=== PATIENT | female | born 1950 | race Caucasian/White ===

== ENCOUNTER → 2016-12-09 | Outpatient (CLI) | payer MEDICARE, OTHER ==
--- NOTE | 2016-12-09 13:47 | REP ---
RIGHT HAND SERIES: Four views. HISTORY: Pain. FINDINGS: Four views of the right hand demonstrate overall normal mineralization. 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 Subcortical cyst formation is seen in the base of the proximal phalanx of the long finger at the PIP joint. Bones, joints and soft tissues are otherwise unremarkable. Imp Arthritic changes as above. No acute bony abnormality. Signed by Sha Leong MD 12/09/2016 04:42 P
== END ==
LOC: M WUC 13:05
PROVIDERS: ATTEND Physician Assistant
DX: M79.641 Pain in right hand (principal)

== ENCOUNTER 2017-05-18 08:06 | Day surgery (SDC) | payer MEDICARE, OTHER ==
[~2017-05-18 08:06] MED LIST: MIDAZOLAM INJ 2 MG/2 ML VIAL (J2250) As Ordered; OFLOXACIN 0.3 % (OCUFLOX) OPTH SOL 5ML OS; PHENYLEPHRINE 2.5% OPHTH SOL 2ML OS; PROPARACAINE 0.5% OPHTH SOL 15ML OS; TROPICAMIDE 1% OPHTH SOLN 2ML OS; fentaNYL 100 MCG/2 ML INJECTION (J3010) As Ordered
[2017-05-18 09:33] LABS: BEDSIDE GLUCOSE 174 MG/DL (80-115)
[2017-05-18] MEDS: PHENYLEPHRINE 2.5% OPHTH SOL 2ML OS (09:38)
[2017-05-18] MEDS: OFLOXACIN 0.3 % (OCUFLOX) OPTH SOL 5ML OS (09:38)
[2017-05-18] MEDS: TROPICAMIDE 1% OPHTH SOLN 2ML OS (09:38)
[2017-05-18] MEDS: PROPARACAINE 0.5% OPHTH SOL 15ML OS (09:38)
[2017-05-18] MEDS: POVIDONE-IODINE 5% OPHTH PREP SOL 30ML As Ordered (11:53)
[2017-05-18] MEDS: BALANCED SALT IRRIGATION SOLUTION 500ML BAG (FOR OR EYE MACHINE) As Ordered (11:54)
[2017-05-18] MEDS: LIDOCAINE 0.75%/EPINEPHRINE 0.025% IN BSS 1ML SYR INTRACAMERAL (OR ONLY) As Ordered (11:54)
[2017-05-18] MEDS: DUOVISC (0.50ML VISCOAT/0.55ML PROVISC) OPHTH KIT As Ordered (11:54)
[2017-05-18] MEDS: ACETYLCHOLINE OPHTH SOLN 1% 2ML (MIOCHOL-E) As Ordered (11:54)
[2017-05-18] MEDS: CEFUROXIME 1MG/0.1ML INTRACAMERAL INJ As Ordered (11:54)
== END 2017-05-18 12:45 | disposition home or self-care (01) ==
LOC: M SDC 08:06
DX: H25.12 Age-related nuclear cataract, left eye (principal); I10 Essential (primary) hypertension; E11.9 Type 2 diabetes mellitus without complications; M19.90 Unspecified osteoarthritis, unspecified site; M54.9 Dorsalgia, unspecified; J45.909 Unspecified asthma, uncomplicated; Z79.899 Other long term (current) drug therapy; Z79.82 Long term (current) use of aspirin; Z79.84 Long term (current) use of oral hypoglycemic drugs
CPT/HCPCS: 66984

== ENCOUNTER 2017-08-11 12:52 | Outpatient (RCR) | payer MEDICARE, OTHER | END 2017-08-21 | LOC: M PT 08-16 14:56 | DX: Z47.1 Aftercare following joint replacement surgery (principal); Z96.652 Presence of left artificial knee joint | CPT/HCPCS: 97110 ==

== ENCOUNTER 2021-09-13 14:46 | Inpatient (IN) | payer MEDICARE, OTHER ==
[~2021-09-13] VITALS: Ht 154.9 cm; Wt 117.0 kg
[~2021-09-13 14:46] MED LIST changes: +ALBU2TA PO; +ASPI81TA26 PO; +ATOR1TAB19; +ESOM1CAP5; +FURO40TA2; +GLIM1TAB4; -MIDAZOLAM INJ 2 MG/2 ML VIAL (J2250) As Ordered; -OFLOXACIN 0.3 % (OCUFLOX) OPTH SOL 5ML OS; -PHENYLEPHRINE 2.5% OPHTH SOL 2ML OS; -PROPARACAINE 0.5% OPHTH SOL 15ML OS; +QUIN1TAB3; -TROPICAMIDE 1% OPHTH SOLN 2ML OS; +[UNRECOGNIZED DRUG - CODE]; -fentaNYL 100 MCG/2 ML INJECTION (J3010) As Ordered
[2021-09-13] MEDS ORDERED: LIDOCAINE 2% W/EPINEPHRINE 20ML VIAL **PRES FREE As Ordered ONE (15:00)
[2021-09-13] MEDS ORDERED: LIDOCAINE 2% W/EPINEPHRINE 20ML VIAL **PRES FREE INJ ONE (15:00)
[2021-09-13] MEDS ORDERED: IBUPROFEN 800 MG TAB PO ONE (15:20)
[2021-09-13] MEDS ORDERED: NS 1,000 ML IV ONE (15:20)
[2021-09-13 15:31] LABS: BASO % 0.2 % (0.0-1.0); EOS % 0.1 % (0.0-3.0); HEMATOCRIT 42.4 % (36.0-47.0); HEMOGLOBIN 13.5 g/dl (12.0-15.5); LYMPH # 0.7 10^3/uL (1.5-5.0); MEAN CORPUSCULAR HEMOGLOBIN 27.7 pg (27.0-33.0); MEAN CORPUSCULAR HGB CONC 31.8 g/dl (32.0-36.5); MEAN CORPUSCULAR VOLUME 86.9 fl (80.0-96.0); MONO # 0.3 10^3/uL (0.0-0.8); MONO % 3.4 % (2.0-8.0); NEUTROPHILS # 8.1 10^3/uL (1.5-8.5); NEUTROPHILS % 87.2 % (36.0-66.0); PLATELET COUNT, AUTOMATED 149 10^3/uL (150-450); RED BLOOD COUNT 4.88 10^6/uL (4.00-5.40); WHITE BLOOD COUNT 9.3 10^3/uL (4.0-10.0)
[2021-09-13] MEDS ORDERED: AMPICILLIN SOD/SULBACTAM SOD 3 GM in D5W MINI-BAG PLUS 100 ML IV ONE (15:45)
[2021-09-13] MEDS ORDERED: VANCOMYCIN HCL 2,000 MG in D5W 500 ML IV ONE (15:45)
[2021-09-13 15:52] LABS: INR 1.1; PROTHROMBIN TIME 14.6 SECONDS (12.7-14.5)
[2021-09-13 15:53] LABS: PARTIAL THROMBOPLASTIN TIME 34.3 SECONDS (25.9-37.0)
[2021-09-13] MEDS ORDERED: VANCOMYCIN HCL 1,000 MG, VIAL MATE ADAPTER 1 EACH in NS 250 ML IV ONE ×2 (16:00→17:00)
[2021-09-13 16:24] LABS: ALBUMIN 3.3 GM/DL (3.2-5.2); BILIRUBIN,DIRECT 0.5 MG/DL (0.0-0.2); BILIRUBIN,TOTAL 1.3 MG/DL (0.2-1.0); C REACTIVE PROTEIN QUANTITATIV 45.3 MG/DL (0.00-0.30); CALCIUM LEVEL 8.9 MG/DL (8.8-10.2); CREATININE FOR GFR 0.98 MG/DL (0.55-1.30); GLOMERULAR FILTRATION RATE 59.9 (>45); POTASSIUM SERUM 3.9 MEQ/L (3.5-5.1)
[2021-09-13 16:26] LABS: INFLUENZA A AMPLIFICATION NEGATIVE (NEGATIVE); INFLUENZA B AMPLIFICATION NEGATIVE (NEGATIVE)
[2021-09-13] MEDS ORDERED: ESOM40CA35 PO (16:38)
[2021-09-13] MEDS ORDERED: SPIR-10 PO (16:38)
[2021-09-13] MEDS: ALBUTEROL 90 MCG/ACT 8GM HFA INHALER INH SCH ×2 (17:01→17:15)
[2021-09-13] MEDS ORDERED: LIDOCAINE 2% 5ML JELLY UROJET TOP ONE (17:05)
[2021-09-13 17:20] LABS: CRYSTALS, BODY FLUID NONE SEEN (NONE SEEN); SOURCE, BODY FLUID CRYSTALS LFT KNEE
[2021-09-13 17:35] LABS: SOURCE, BODY FLUID LFT KNEE; SYNOVIAL FLUID COLOR RED (COLORLESS)
[2021-09-13 17:46] LABS: SOURCE, BODY FLUID GLUCOSE LFT KNEE; SOURCE, BODY FLUID URIC ACID LFT KNEE; URIC ACID, BODY FLUID 4.9 MG/DL (NOT ESTABLISHED)
[2021-09-13] MEDS ORDERED: ALBUTEROL SULFATE 2.5 MG/0.5 ML INH NEB SOLN NEB PRN (18:55)
[2021-09-13] MEDS ORDERED: GLUCAGON INJ 1MG VIAL SC PRN (19:05)
[2021-09-13] MEDS ORDERED: DEXTROSE 50% 50 ML SYRINGE IV PRN (19:05)
[2021-09-13] MEDS ORDERED: GLUCOSE 4GM CHEW TABLET PO PRN (19:05)
[2021-09-13] MEDS ORDERED: VANCOMYCIN HCL 1,000 MG, VIAL MATE ADAPTER 1 EACH in NS 250 ML IV SCH (20:25)
[2021-09-13 20:45] VITALS: BP 126/57
[2021-09-13] MEDS: INSULIN LISPRO (NovoLOG) PER UNIT SC SCH (21:41)
[2021-09-13] MEDS ORDERED: REMDESIVIR 200 MG in NS 250 ML IV ONE (22:00)
[2021-09-13] MEDS ORDERED: ATOR1TAB19 PO (22:07)
[2021-09-13] MEDS ORDERED: ALBU8.5H INH (22:07)
[2021-09-13] MEDS ORDERED: FURO40TA2 PO (22:07)
[2021-09-13] MEDS ORDERED: QUIN20TA48 PO (22:07)
[2021-09-13] MEDS ORDERED: VITA400C53 PO (22:10)
[2021-09-13] MEDS ORDERED: C 50TAB PO (22:10)
[2021-09-13] MEDS ORDERED: ACET-907 PO (22:10)
[2021-09-13] MEDS ORDERED: REFR0.5D8 OU (22:10)
[2021-09-13] MEDS ORDERED: EQL50TAB2 PO (22:10)
[2021-09-13] MEDS ORDERED: VITA100093 PO (22:10)
[2021-09-13] MEDS ORDERED: BACITAB PO (22:10)
[2021-09-13] MEDS ORDERED: HOME MED LIST COMPLETE! XX SCH (22:15)
[2021-09-13] MEDS ORDERED: SODIUM CHLORIDE 0.9% INJ 10 ML SYR IV ONE (23:00)
[2021-09-13] MEDS: PIPERACILLIN/TAZOBACTAM SOD 3.375 GM in D5W MINI-BAG PLUS 50 ML IV SCH (23:58)
[2021-09-14] VITALS (12 sets, daily range): BP systolic 111–175; BP diastolic 55–77; O2SAT 83–93
[2021-09-14] MEDS: PIPERACILLIN/TAZOBACTAM SOD 3.375 GM in D5W MINI-BAG PLUS 50 ML IV SCH ×4 (04:05→22:54)
[2021-09-14] MEDS: VANCOMYCIN HCL 750 MG, VIAL MATE ADAPTER 1 EACH in NS 250 ML IV SCH ×2 (05:09→17:45)
[2021-09-14] MEDS: ACETAMINOPHEN TAB 650MG DOSE (2X325MG) PO PRN ×3 (05:36→22:56)
[2021-09-14] MEDS: VANCOMYCIN HCL 500 MG in D5W MINI-BAG PLUS 100 ML IV SCH ×2 (06:20→19:56)
[2021-09-14 06:48] LABS: HEMATOCRIT 37.7 % (36.0-47.0); HEMOGLOBIN 11.9 g/dl (12.0-15.5); MEAN CORPUSCULAR HEMOGLOBIN 27.4 pg (27.0-33.0); MEAN CORPUSCULAR HGB CONC 31.6 g/dl (32.0-36.5); MEAN CORPUSCULAR VOLUME 86.9 fl (80.0-96.0); PLATELET COUNT, AUTOMATED 140 10^3/uL (150-450); RED BLOOD COUNT 4.34 10^6/uL (4.00-5.40); WHITE BLOOD COUNT 8.7 10^3/uL (4.0-10.0)
[2021-09-14 07:13] LABS: ALBUMIN 2.6 GM/DL (3.2-5.2); ALT/SGPT 23 U/L (12-78); BILIRUBIN,DIRECT 0.3 MG/DL (0.0-0.2); BILIRUBIN,TOTAL 0.9 MG/DL (0.2-1.0); BLOOD UREA NITROGEN 24 MG/DL (7-18); CALCIUM LEVEL 8.7 MG/DL (8.8-10.2); CARBON DIOXIDE LEVEL 27 MEQ/L (21-32); CHLORIDE LEVEL 103 MEQ/L (98-107); CREATININE FOR GFR 0.96 MG/DL (0.55-1.30); GLOMERULAR FILTRATION RATE > 60.0 (>45); GLUCOSE, FASTING 255 MG/DL (70-100); MAGNESIUM LEVEL 2.5 MG/DL (1.8-2.4); POTASSIUM SERUM 3.3 MEQ/L (3.5-5.1); SODIUM LEVEL 137 MEQ/L (136-145); TOTAL PROTEIN 7.1 GM/DL (6.4-8.2)
[2021-09-14 07:38] LABS: HEMOGLOBIN A1c 10.2 %
[2021-09-14 08:20] LABS: LYMPHOCYTES 14 % (16-44); MONOCYTES 9 % (0-5); NEUTROPHILS 77 % (28-66); PLATELET ESTIMATE NORMAL (NORMAL)
[2021-09-14] MEDS ORDERED: ASPIRIN 81MG ENTERIC TABLET PO SCH (09:00)
[2021-09-14] MEDS ORDERED: ENOXAPARIN 40MG/0.4ML SYRINGE (J1650 PER 10MG) SC SCH ×2 (09:00→21:00)
[2021-09-14] MEDS: INSULIN LISPRO (NovoLOG) PER UNIT SC SCH ×4 (09:33→21:13)
[2021-09-14] MEDS: LEVEMIR (INSULIN DETEMIR) 1 UNITS/0.01ML SC SCH (09:34)
[2021-09-14] MEDS: SPIRONOLACTONE 25 MG TAB PO SCH (09:34)
[2021-09-14] MEDS: ASPIRIN 81MG ENTERIC TABLET PO SCH (09:35)
[2021-09-14] MEDS: ATORVASTATIN 10 MG TAB PO SCH (09:35)
[2021-09-14] MEDS: FUROSEMIDE 40 MG TAB PO SCH (09:35)
[2021-09-14] MEDS ORDERED: NS 1,000 ML IV SCH (12:50)
[2021-09-14 13:38] LABS: BASO % 0.4 % (0.0-1.0); EOS % 0.4 % (0.0-3.0); HEMATOCRIT 39.3 % (36.0-47.0); HEMOGLOBIN 12.4 g/dl (12.0-15.5); LYMPH # 0.5 10^3/uL (1.5-5.0); LYMPH % 6.7 % (24.0-44.0); MEAN CORPUSCULAR HEMOGLOBIN 27.1 pg (27.0-33.0); MEAN CORPUSCULAR HGB CONC 31.6 g/dl (32.0-36.5); MONO # 0.5 10^3/uL (0.0-0.8); MONO % 6.6 % (2.0-8.0); NEUTROPHILS # 6.6 10^3/uL (1.5-8.5); NEUTROPHILS % 84.6 % (36.0-66.0); PLATELET COUNT, AUTOMATED 153 10^3/uL (150-450); RED BLOOD COUNT 4.57 10^6/uL (4.00-5.40); WHITE BLOOD COUNT 7.8 10^3/uL (4.0-10.0)
[2021-09-14] MEDS ORDERED: IBUPROFEN 800 MG TAB PO ONE (14:00)
[2021-09-14 14:07] LABS: ALBUMIN 2.8 GM/DL (3.2-5.2); ALT/SGPT 28 U/L (12-78); BILIRUBIN,TOTAL 0.8 MG/DL (0.2-1.0); BLOOD UREA NITROGEN 22 MG/DL (7-18); CALCIUM LEVEL 8.5 MG/DL (8.8-10.2); CARBON DIOXIDE LEVEL 26 MEQ/L (21-32); CHLORIDE LEVEL 102 MEQ/L (98-107); CREATININE FOR GFR 0.88 MG/DL (0.55-1.30); GLOMERULAR FILTRATION RATE > 60.0 (>45); GLUCOSE, FASTING 240 MG/DL (70-100); POTASSIUM SERUM 3.4 MEQ/L (3.5-5.1); SODIUM LEVEL 137 MEQ/L (136-145); TOTAL PROTEIN 6.4 GM/DL (6.4-8.2)
[2021-09-14] MEDS ORDERED: MORPHINE 2 MG/ML 1ML VIAL IV PRN (15:10)
[2021-09-14] MEDS: MORPHINE 2 MG/ML 1ML VIAL IV PRN (19:57)
[2021-09-14] MEDS: QUINAPRIL 20 MG TAB PO SCH (19:58)
[2021-09-14] MEDS: REMDESIVIR 100 MG in NS 250 ML IV SCH (21:13)
[2021-09-14] MEDS: SODIUM CHLORIDE 0.9% INJ 10 ML SYR IV SCH (22:54)
[2021-09-15] MEDS: MORPHINE 2 MG/ML 1ML VIAL IV PRN ×4 (01:54→20:56)
[2021-09-15] MEDS: PIPERACILLIN/TAZOBACTAM SOD 3.375 GM in D5W MINI-BAG PLUS 50 ML IV SCH (04:14)
[2021-09-15 04:20] VITALS: BP 118/57
[2021-09-15] MEDS ORDERED: VANCOMYCIN HCL 1,000 MG, VIAL MATE ADAPTER 1 EACH in NS 250 ML IV SCH (06:00)
[2021-09-15 07:27] LABS: BASO % 0.4 % (0.0-1.0); EOS # 0.1 10^3/uL (0.0-0.5); EOS % 1.4 % (0.0-3.0); HEMATOCRIT 36.4 % (36.0-47.0); HEMOGLOBIN 11.6 g/dl (12.0-15.5); LYMPH # 0.8 10^3/uL (1.5-5.0); LYMPH % 10.5 % (24.0-44.0); MEAN CORPUSCULAR HEMOGLOBIN 27.5 pg (27.0-33.0); MEAN CORPUSCULAR HGB CONC 31.9 g/dl (32.0-36.5); MEAN CORPUSCULAR VOLUME 86.3 fl (80.0-96.0); MONO # 0.8 10^3/uL (0.0-0.8); MONO % 10.9 % (2.0-8.0); NEUTROPHILS # 5.6 10^3/uL (1.5-8.5); NEUTROPHILS % 75.3 % (36.0-66.0); PLATELET COUNT, AUTOMATED 159 10^3/uL (150-450); RED BLOOD COUNT 4.22 10^6/uL (4.00-5.40); WHITE BLOOD COUNT 7.4 10^3/uL (4.0-10.0)
[2021-09-15 07:33] LABS: INR 1.2; PROTHROMBIN TIME 15.6 SECONDS (12.7-14.5)
[2021-09-15 07:34] LABS: PARTIAL THROMBOPLASTIN TIME 44.3 SECONDS (25.9-37.0)
[2021-09-15 07:47] LABS: ALBUMIN 2.3 GM/DL (3.2-5.2); ALT/SGPT 29 U/L (12-78); BILIRUBIN,DIRECT 0.3 MG/DL (0.0-0.2); BILIRUBIN,TOTAL 0.5 MG/DL (0.2-1.0); BLOOD UREA NITROGEN 23 MG/DL (7-18); CALCIUM LEVEL 7.9 MG/DL (8.8-10.2); CARBON DIOXIDE LEVEL 27 MEQ/L (21-32); CHLORIDE LEVEL 102 MEQ/L (98-107); FERRITIN 457 NG/ML (8-252); GLOMERULAR FILTRATION RATE > 60.0 (>45); GLUCOSE, FASTING 280 MG/DL (70-100); LDH LACTATE DEHYDROGENASE 177 U/L (84-246); MAGNESIUM LEVEL 2.4 MG/DL (1.8-2.4); NT-PRO BNP 258 PG/ML (<125); POTASSIUM SERUM 3.1 MEQ/L (3.5-5.1); SODIUM LEVEL 137 MEQ/L (136-145); TOTAL PROTEIN 5.8 GM/DL (6.4-8.2)
[2021-09-15 08:00] VITALS: BP 123/64
[2021-09-15] MEDS: ACETAMINOPHEN TAB 650MG DOSE (2X325MG) PO PRN (08:19)
[2021-09-15] MEDS ORDERED: LEVEMIR (INSULIN DETEMIR) 1 UNITS/0.01ML SC ONE (08:25)
[2021-09-15] MEDS: INSULIN LISPRO (NovoLOG) PER UNIT SC SCH ×4 (08:32→20:40)
[2021-09-15] MEDS: cefTRIAXone SOD 2 GM in D5W MINI-BAG PLUS 50 ML IV SCH (08:58)
[2021-09-15] MEDS: ATORVASTATIN 10 MG TAB PO SCH (09:00)
[2021-09-15] MEDS: LACTOBACILLUS ACIDOPHILUS CAP (BACID) PO SCH (09:00)
[2021-09-15] MEDS: ASCORBIC ACID 500 MG TAB PO SCH (09:00)
[2021-09-15] MEDS: ASPIRIN 81MG ENTERIC TABLET PO SCH (10:30)
[2021-09-15] MEDS: VITAMIN D 1,000 INTERNATIONAL UNITS TABLET PO SCH (10:30)
[2021-09-15] MEDS: PANTOPRAZOLE 40MG TAB (PROTONIX) PO SCH (10:30)
[2021-09-15 12:00] VITALS: BP 116/63
[2021-09-15] MEDS ORDERED: ceFAZolin 1GM VIAL (J0690 PER 500MG) As Ordered ONE (14:25)
[2021-09-15] MEDS ORDERED: MIDAZOLAM INJ 2MG/2ML VIAL (J2250 PER 1MG) As Ordered ONE (14:47)
[2021-09-15] MEDS ORDERED: METOCLOPRAMIDE INJ 10MG/2ML VIAL (J2765 PER 1) As Ordered ONE (14:47)
[2021-09-15] MEDS ORDERED: dexameTHASONE 4 MG/ML 1ML VIAL (J1100 PER 1MG) As Ordered ONE (14:47)
[2021-09-15] MEDS ORDERED: LIDOCAINE 2% 100MG/5ML SDV (FOR ANES.) As Ordered ONE (14:47)
[2021-09-15] MEDS ORDERED: fentaNYL 100 MCG/2 ML INJECTION As Ordered ONE ×2 (14:47→16:50)
[2021-09-15] MEDS ORDERED: propofoL 200 MG/20 ML VIAL As Ordered ONE ×3 (14:47→16:52)
[2021-09-15] MEDS ORDERED: ONDANSETRON 4MG/2ML VIAL As Ordered ONE (14:47)
[2021-09-15] MEDS ORDERED: INSULIN LISPRO (NovoLOG) PER UNIT As Ordered ONE (15:04)
[2021-09-15] MEDS ORDERED: LABETALOL 100MG/20ML VIAL As Ordered ONE (15:09)
[2021-09-15] MEDS ORDERED: TRANEXAMIC ACID 100 MG/ML 10ML VIAL As Ordered ONE (15:14)
[2021-09-15] MEDS ORDERED: ACETAMINOPHEN 1000MG 100ML IV BTL (OFIRMEV) (J0131 PER 10MG) As Ordered ONE (17:13)
[2021-09-15] MEDS ORDERED: BACITRACIN OINTMENT 30GM TUBE As Ordered ONE (17:34)
[2021-09-15] MEDS ORDERED: ONDANSETRON 4MG/2ML VIAL IV PRN (17:50)
[2021-09-15] MEDS ORDERED: INSULIN LISPRO (NovoLOG) PER UNIT SC PRN (17:50)
[2021-09-15] MEDS ORDERED: METOCLOPRAMIDE INJ 10MG/2ML VIAL (J2765 PER 1) IV PRN (17:50)
[2021-09-15] MEDS ORDERED: LR 1,000 ML IV SCH (17:50)
[2021-09-15] MEDS ORDERED: diphenhydrAMINE 50MG/ML VIAL (J1200) IV PRN (17:55)
[2021-09-15] MEDS ORDERED: zolPIDEM TARTRATE 5 MG TAB PO PRN (17:55)
[2021-09-15] MEDS ORDERED: SENNA 8.6 MG TAB (SENOKOT) PO PRN (17:55)
[2021-09-15] MEDS: HYDROMORPHONE HCL 0.5 MG/ 0.5 ML SYRINGE (J1170 PER 1) IV PRN ×2 (18:00→18:10)
[2021-09-15] MEDS: oxyCODONE 5MG TAB PO PRN ×2 (18:15→18:45)
[2021-09-15] MEDS: fentaNYL 100 MCG/2 ML INJECTION IV PRN ×4 (18:15→18:39)
[2021-09-15 18:45] VITALS: BP 143/77
[2021-09-15 20:00] VITALS: BP 151/71
[2021-09-15] MEDS: REMDESIVIR 100 MG in NS 250 ML IV SCH (20:39)
[2021-09-15] MEDS: IBUPROFEN 600MG TAB PO PRN (20:56)
[2021-09-15] MEDS: SODIUM CHLORIDE 0.9% INJ 10 ML SYR IV SCH (22:08)
[2021-09-16] MEDS: MORPHINE 2 MG/ML 1ML VIAL IV PRN ×5 (01:22→21:05)
[2021-09-16 04:00] VITALS: BP 126/67
[2021-09-16] MEDS: ACETAMINOPHEN TAB 650MG DOSE (2X325MG) PO PRN ×2 (04:36→23:49)
[2021-09-16 06:20] LABS: HEMOGLOBIN 11.5 g/dl (12.0-15.5); MEAN CORPUSCULAR HEMOGLOBIN 27.7 pg (27.0-33.0); MEAN CORPUSCULAR HGB CONC 31.9 g/dl (32.0-36.5); MEAN CORPUSCULAR VOLUME 86.7 fl (80.0-96.0); PLATELET COUNT, AUTOMATED 178 10^3/uL (150-450); RED BLOOD COUNT 4.15 10^6/uL (4.00-5.40); WHITE BLOOD COUNT 10.6 10^3/uL (4.0-10.0)
[2021-09-16 07:01] LABS: LYMPHOCYTES 11 % (16-44); MONOCYTES 4 % (0-5); NEUTROPHILS 83 % (28-66)
[2021-09-16 07:03] LABS: BLOOD UREA NITROGEN 24 MG/DL (7-18); CALCIUM LEVEL 8.9 MG/DL (8.8-10.2); CARBON DIOXIDE LEVEL 24 MEQ/L (21-32); CHLORIDE LEVEL 103 MEQ/L (98-107); CREATININE FOR GFR 0.74 MG/DL (0.55-1.30); GLOMERULAR FILTRATION RATE > 60.0 (>45); GLUCOSE, FASTING 307 MG/DL (70-100); MAGNESIUM LEVEL 2.7 MG/DL (1.8-2.4); POTASSIUM SERUM 3.5 MEQ/L (3.5-5.1); SODIUM LEVEL 139 MEQ/L (136-145)
[2021-09-16 07:04] LABS: PLATELET ESTIMATE NORMAL (NORMAL)
[2021-09-16] MEDS: INSULIN LISPRO (NovoLOG) PER UNIT SC SCH ×4 (07:31→20:57)
[2021-09-16] MEDS: ASPIRIN 81MG ENTERIC TABLET PO SCH (07:32)
[2021-09-16] MEDS: ATORVASTATIN 10 MG TAB PO SCH (07:32)
[2021-09-16] MEDS: LACTOBACILLUS ACIDOPHILUS CAP (BACID) PO SCH (07:32)
[2021-09-16] MEDS: PANTOPRAZOLE 40MG TAB (PROTONIX) PO SCH (07:33)
[2021-09-16] MEDS: ASCORBIC ACID 500 MG TAB PO SCH (07:33)
[2021-09-16] MEDS: VITAMIN D 1,000 INTERNATIONAL UNITS TABLET PO SCH (07:33)
[2021-09-16] MEDS: cefTRIAXone SOD 2 GM in D5W MINI-BAG PLUS 50 ML IV SCH (07:34)
[2021-09-16] MEDS: LEVEMIR (INSULIN DETEMIR) 1 UNITS/0.01ML SC SCH (09:32)
[2021-09-16] MEDS: SPIRONOLACTONE 25 MG TAB PO SCH (09:33)
[2021-09-16] MEDS: FUROSEMIDE 40 MG TAB PO SCH (09:33)
[2021-09-16 10:00] VITALS: O2SAT 91
[2021-09-16 14:00] VITALS: BP 146/67
[2021-09-16] MEDS: IBUPROFEN 600MG TAB PO PRN (14:29)
[2021-09-16] MEDS: ENOXAPARIN 40MG/0.4ML SYRINGE (J1650 PER 10MG) SC SCH (16:46)
[2021-09-16 20:00] VITALS: BP 137/71
[2021-09-16] MEDS: QUINAPRIL 20 MG TAB PO SCH (20:57)
[2021-09-17] MEDS: MORPHINE 2 MG/ML 1ML VIAL IV PRN ×5 (01:17→20:03)
[2021-09-17 04:00] VITALS: BP 142/66
[2021-09-17] MEDS: IBUPROFEN 600MG TAB PO PRN (04:08)
[2021-09-17 07:33] LABS: HEMATOCRIT 34.8 % (36.0-47.0); HEMOGLOBIN 10.9 g/dl (12.0-15.5); MEAN CORPUSCULAR HEMOGLOBIN 27.1 pg (27.0-33.0); MEAN CORPUSCULAR HGB CONC 31.3 g/dl (32.0-36.5); MEAN CORPUSCULAR VOLUME 86.6 fl (80.0-96.0); PLATELET COUNT, AUTOMATED 207 10^3/uL (150-450); RED BLOOD COUNT 4.02 10^6/uL (4.00-5.40); WHITE BLOOD COUNT 10.7 10^3/uL (4.0-10.0)
[2021-09-17 07:53] LABS: INR 1.08; PROTHROMBIN TIME 14.4 SECONDS (12.7-14.5)
[2021-09-17 07:54] LABS: PARTIAL THROMBOPLASTIN TIME 38.8 SECONDS (25.9-37.0)
[2021-09-17 08:12] LABS: ERYTHROCYTE SEDIMENTATION RATE 86 mm/hr (0-30)
[2021-09-17 08:13] LABS: ALBUMIN 2.2 GM/DL (3.2-5.2); ALT/SGPT 44 U/L (12-78); BILIRUBIN,DIRECT 0.2 MG/DL (0.0-0.2); BILIRUBIN,TOTAL 0.4 MG/DL (0.2-1.0); BLOOD UREA NITROGEN 24 MG/DL (7-18); CALCIUM LEVEL 8.1 MG/DL (8.8-10.2); CARBON DIOXIDE LEVEL 30 MEQ/L (21-32); CHLORIDE LEVEL 101 MEQ/L (98-107); CREATININE FOR GFR 0.79 MG/DL (0.55-1.30); FERRITIN 840 NG/ML (8-252); GLOMERULAR FILTRATION RATE > 60.0 (>45); GLUCOSE, FASTING 318 MG/DL (70-100); LDH LACTATE DEHYDROGENASE 232 U/L (84-246); MAGNESIUM LEVEL 2.3 MG/DL (1.8-2.4); NT-PRO BNP 284 PG/ML (<125); POTASSIUM SERUM 3.3 MEQ/L (3.5-5.1); SODIUM LEVEL 138 MEQ/L (136-145); TOTAL PROTEIN 5.7 GM/DL (6.4-8.2)
[2021-09-17] MEDS: INSULIN LISPRO (NovoLOG) PER UNIT SC SCH ×4 (09:00→20:59)
[2021-09-17] MEDS: cefTRIAXone SOD 2 GM in D5W MINI-BAG PLUS 50 ML IV SCH (09:01)
[2021-09-17] MEDS: LEVEMIR (INSULIN DETEMIR) 1 UNITS/0.01ML SC SCH (09:01)
[2021-09-17] MEDS: ASPIRIN 81MG ENTERIC TABLET PO SCH (09:02)
[2021-09-17] MEDS: FUROSEMIDE 40 MG TAB PO SCH (09:03)
[2021-09-17] MEDS: PANTOPRAZOLE 40MG TAB (PROTONIX) PO SCH (09:03)
[2021-09-17] MEDS: ASCORBIC ACID 500 MG TAB PO SCH (09:03)
[2021-09-17] MEDS: ATORVASTATIN 10 MG TAB PO SCH (09:03)
[2021-09-17] MEDS: LACTOBACILLUS ACIDOPHILUS CAP (BACID) PO SCH (09:04)
[2021-09-17] MEDS: SPIRONOLACTONE 25 MG TAB PO SCH (09:04)
[2021-09-17] MEDS: VITAMIN D 1,000 INTERNATIONAL UNITS TABLET PO SCH (09:04)
[2021-09-17] MEDS ORDERED: POTASSIUM CHLORIDE 10MEQ SR TABLET PO ONE (09:45)
[2021-09-17] MEDS: ACETAMINOPHEN TAB 650MG DOSE (2X325MG) PO PRN ×2 (10:36→17:13)
[2021-09-17 11:13] LABS: EOSINOPHILS 4 % (0-3); LYMPHOCYTES 31 % (16-44); METAMYELOCYTES 1 % (0-0); MONOCYTES 7 % (0-5); MYELOCYTES 2 % (0-0); NEUTROPHILS 55 % (28-66); PLATELET ESTIMATE NORMAL (NORMAL)
[2021-09-17 11:58] VITALS: O2SAT 93
[2021-09-17 14:00] VITALS: BP 140/70
[2021-09-17] MEDS ORDERED: LIDOCAINE 1% MDV 20ML VIAL As Ordered ONE (15:50)
[2021-09-17] MEDS: ENOXAPARIN 40MG/0.4ML SYRINGE (J1650 PER 10MG) SC SCH (17:11)
[2021-09-17] MEDS: QUINAPRIL 20 MG TAB PO SCH (20:10)
[2021-09-17] MEDS ORDERED: HYDROmorphone HCL 2MG/ML 1ML VIAL IV ONE (22:25)
[2021-09-17] MEDS ORDERED: MORPHINE 4 MG/ML 1ML VIAL/SYRINGE IV PRN (23:10)
[2021-09-17] MEDS ORDERED: MORPHINE 2 MG/ML 1ML VIAL IV PRN (23:10)
[2021-09-18 06:00] VITALS: BP 167/77
[2021-09-18 07:32] LABS: HEMATOCRIT 35.9 % (36.0-47.0); HEMOGLOBIN 11.2 g/dl (12.0-15.5); MEAN CORPUSCULAR HEMOGLOBIN 26.9 pg (27.0-33.0); MEAN CORPUSCULAR HGB CONC 31.2 g/dl (32.0-36.5); MEAN CORPUSCULAR VOLUME 86.3 fl (80.0-96.0); PLATELET COUNT, AUTOMATED 236 10^3/uL (150-450); RED BLOOD COUNT 4.16 10^6/uL (4.00-5.40); WHITE BLOOD COUNT 10.6 10^3/uL (4.0-10.0)
[2021-09-18] MEDS: INSULIN LISPRO (NovoLOG) PER UNIT SC SCH ×4 (07:43→20:45)
[2021-09-18] MEDS: PERCOCET 5MG/325MG TAB PO PRN ×4 (07:44→20:48)
[2021-09-18 07:51] LABS: BLOOD UREA NITROGEN 17 MG/DL (7-18); CALCIUM LEVEL 8.6 MG/DL (8.8-10.2); CARBON DIOXIDE LEVEL 30 MEQ/L (21-32); CHLORIDE LEVEL 101 MEQ/L (98-107); CREATININE FOR GFR 0.62 MG/DL (0.55-1.30); GLOMERULAR FILTRATION RATE > 60.0 (>45); GLUCOSE, FASTING 309 MG/DL (70-100); MAGNESIUM LEVEL 2.1 MG/DL (1.8-2.4); POTASSIUM SERUM 3.4 MEQ/L (3.5-5.1); SODIUM LEVEL 138 MEQ/L (136-145)
[2021-09-18 08:00] VITALS: O2SAT 94
[2021-09-18 08:25] LABS: BASOPHILS 1 % (0-1); EOSINOPHILS 4 % (0-3); LYMPHOCYTES 21 % (16-44); METAMYELOCYTES 2 % (0-0); MONOCYTES 4 % (0-5); MYELOCYTES 1 % (0-0); NEUTROPHILS 62 % (28-66)
[2021-09-18 08:26] LABS: PLATELET CLUMPS SMALL AMT; PLATELET ESTIMATE NORMAL (NORMAL)
[2021-09-18] MEDS: LACTOBACILLUS ACIDOPHILUS CAP (BACID) PO SCH (08:54)
[2021-09-18] MEDS: ASPIRIN 81MG ENTERIC TABLET PO SCH (08:54)
[2021-09-18] MEDS: VITAMIN D 1,000 INTERNATIONAL UNITS TABLET PO SCH (08:54)
[2021-09-18] MEDS: SPIRONOLACTONE 25 MG TAB PO SCH (08:54)
[2021-09-18] MEDS: ASCORBIC ACID 500 MG TAB PO SCH (08:54)
[2021-09-18] MEDS: cefTRIAXone SOD 2 GM in D5W MINI-BAG PLUS 50 ML IV SCH (08:54)
[2021-09-18] MEDS: PANTOPRAZOLE 40MG TAB (PROTONIX) PO SCH (08:55)
[2021-09-18] MEDS: ATORVASTATIN 10 MG TAB PO SCH (08:55)
[2021-09-18] MEDS: LEVEMIR (INSULIN DETEMIR) 1 UNITS/0.01ML SC SCH (08:55)
[2021-09-18] MEDS: FUROSEMIDE 40 MG TAB PO SCH (08:55)
[2021-09-18] MEDS ORDERED: SODIUM CHLORIDE 0.9% INJ 10 ML SYR IV PRN (09:30)
[2021-09-18] MEDS: ENOXAPARIN 40MG/0.4ML SYRINGE (J1650 PER 10MG) SC SCH (17:06)
[2021-09-18] MEDS: SODIUM CHLORIDE 0.9% INJ 10 ML SYR IV SCH (17:07)
[2021-09-18] MEDS: QUINAPRIL 20 MG TAB PO SCH (20:45)
[2021-09-19] MEDS: PERCOCET 5MG/325MG TAB PO PRN ×5 (00:24→23:59)
[2021-09-19 06:00] VITALS: BP 149/79
[2021-09-19] MEDS: SODIUM CHLORIDE 0.9% INJ 10 ML SYR IV SCH ×2 (06:00→17:04)
[2021-09-19 07:53] LABS: HEMATOCRIT 36.2 % (36.0-47.0); HEMOGLOBIN 11.3 g/dl (12.0-15.5); MEAN CORPUSCULAR HEMOGLOBIN 27.6 pg (27.0-33.0); MEAN CORPUSCULAR HGB CONC 31.2 g/dl (32.0-36.5); MEAN CORPUSCULAR VOLUME 88.3 fl (80.0-96.0); PLATELET COUNT, AUTOMATED 256 10^3/uL (150-450); WHITE BLOOD COUNT 11.4 10^3/uL (4.0-10.0)
[2021-09-19 08:04] LABS: INR 1.12; PARTIAL THROMBOPLASTIN TIME 36.3 SECONDS (25.9-37.0); PROTHROMBIN TIME 14.8 SECONDS (12.7-14.5)
[2021-09-19] MEDS: ASPIRIN 81MG ENTERIC TABLET PO SCH (08:24)
[2021-09-19] MEDS: cefTRIAXone SOD 2 GM in D5W MINI-BAG PLUS 50 ML IV SCH (08:24)
[2021-09-19] MEDS: VITAMIN D 1,000 INTERNATIONAL UNITS TABLET PO SCH (08:24)
[2021-09-19] MEDS: LACTOBACILLUS ACIDOPHILUS CAP (BACID) PO SCH (08:24)
[2021-09-19] MEDS: ATORVASTATIN 10 MG TAB PO SCH (08:25)
[2021-09-19] MEDS: POTASSIUM CHLORIDE 10MEQ SR TABLET PO SCH (08:25)
[2021-09-19] MEDS: SPIRONOLACTONE 25 MG TAB PO SCH (08:25)
[2021-09-19] MEDS: PANTOPRAZOLE 40MG TAB (PROTONIX) PO SCH (08:25)
[2021-09-19] MEDS: ASCORBIC ACID 500 MG TAB PO SCH (08:25)
[2021-09-19] MEDS: FUROSEMIDE 40 MG TAB PO SCH (08:25)
[2021-09-19] MEDS: LEVEMIR (INSULIN DETEMIR) 1 UNITS/0.01ML SC SCH (08:25)
[2021-09-19] MEDS: INSULIN LISPRO (NovoLOG) PER UNIT SC SCH ×4 (08:26→20:05)
[2021-09-19 08:39] LABS: ALBUMIN 2.1 GM/DL (3.2-5.2); ALT/SGPT 60 U/L (12-78); BILIRUBIN,DIRECT 0.2 MG/DL (0.0-0.2); BILIRUBIN,TOTAL 0.4 MG/DL (0.2-1.0); BLOOD UREA NITROGEN 15 MG/DL (7-18); C REACTIVE PROTEIN QUANTITATIV 9.93 MG/DL (0.00-0.30); CARBON DIOXIDE LEVEL 34 MEQ/L (21-32); CHLORIDE LEVEL 101 MEQ/L (98-107); CREATININE FOR GFR 0.52 MG/DL (0.55-1.30); FERRITIN 440 NG/ML (8-252); GLOMERULAR FILTRATION RATE > 60.0 (>45); GLUCOSE, FASTING 290 MG/DL (70-100); LDH LACTATE DEHYDROGENASE 308 U/L (84-246); MAGNESIUM LEVEL 2.2 MG/DL (1.8-2.4); NT-PRO BNP 108 PG/ML (<125); POTASSIUM SERUM 3.5 MEQ/L (3.5-5.1); SODIUM LEVEL 142 MEQ/L (136-145); TOTAL PROTEIN 5.9 GM/DL (6.4-8.2)
[2021-09-19 08:59] LABS: EOSINOPHILS 6 % (0-3); LYMPHOCYTES 26 % (16-44); METAMYELOCYTES 2 % (0-0); MONOCYTES 5 % (0-5); MYELOCYTES 2 % (0-0); NEUTROPHILS 57 % (28-66)
[2021-09-19 09:02] LABS: PLATELET ESTIMATE NORMAL (NORMAL)
[2021-09-19] MEDS: ENOXAPARIN 40MG/0.4ML SYRINGE (J1650 PER 10MG) SC SCH (16:56)
[2021-09-19] MEDS: QUINAPRIL 20 MG TAB PO SCH (20:05)
[2021-09-20 04:49] VITALS: BP 149/67
[2021-09-20] MEDS: SODIUM CHLORIDE 0.9% INJ 10 ML SYR IV SCH ×2 (05:01→17:13)
[2021-09-20] MEDS: PERCOCET 5MG/325MG TAB PO PRN ×3 (05:57→16:11)
[2021-09-20 08:10] LABS: HEMATOCRIT 36.2 % (36.0-47.0); HEMOGLOBIN 11.2 g/dl (12.0-15.5); MEAN CORPUSCULAR HEMOGLOBIN 27.1 pg (27.0-33.0); MEAN CORPUSCULAR HGB CONC 30.9 g/dl (32.0-36.5); MEAN CORPUSCULAR VOLUME 87.7 fl (80.0-96.0); PLATELET COUNT, AUTOMATED 249 10^3/uL (150-450); RED BLOOD COUNT 4.13 10^6/uL (4.00-5.40); WHITE BLOOD COUNT 11.7 10^3/uL (4.0-10.0)
[2021-09-20] MEDS: SPIRONOLACTONE 25 MG TAB PO SCH (08:16)
[2021-09-20] MEDS: PANTOPRAZOLE 40MG TAB (PROTONIX) PO SCH (08:16)
[2021-09-20] MEDS: ASPIRIN 81MG ENTERIC TABLET PO SCH (08:16)
[2021-09-20] MEDS: ATORVASTATIN 10 MG TAB PO SCH (08:16)
[2021-09-20] MEDS: FUROSEMIDE 40 MG TAB PO SCH (08:16)
[2021-09-20] MEDS: ASCORBIC ACID 500 MG TAB PO SCH (08:16)
[2021-09-20] MEDS: VITAMIN D 1,000 INTERNATIONAL UNITS TABLET PO SCH (08:16)
[2021-09-20] MEDS: LACTOBACILLUS ACIDOPHILUS CAP (BACID) PO SCH (08:16)
[2021-09-20] MEDS: POTASSIUM CHLORIDE 10MEQ SR TABLET PO SCH (08:17)
[2021-09-20] MEDS: LEVEMIR (INSULIN DETEMIR) 1 UNITS/0.01ML SC SCH (08:17)
[2021-09-20] MEDS: cefTRIAXone SOD 2 GM in D5W MINI-BAG PLUS 50 ML IV SCH (08:17)
[2021-09-20] MEDS: INSULIN LISPRO (NovoLOG) PER UNIT SC SCH ×4 (08:19→20:52)
[2021-09-20 08:32] LABS: BLOOD UREA NITROGEN 11 MG/DL (7-18); C REACTIVE PROTEIN QUANTITATIV 8.19 MG/DL (0.00-0.30); CALCIUM LEVEL 8.7 MG/DL (8.8-10.2); CARBON DIOXIDE LEVEL 33 MEQ/L (21-32); CHLORIDE LEVEL 101 MEQ/L (98-107); CREATININE FOR GFR 0.51 MG/DL (0.55-1.30); GLOMERULAR FILTRATION RATE > 60.0 (>45); GLUCOSE, FASTING 312 MG/DL (70-100); MAGNESIUM LEVEL 2.2 MG/DL (1.8-2.4); POTASSIUM SERUM 3.6 MEQ/L (3.5-5.1); SODIUM LEVEL 141 MEQ/L (136-145)
[2021-09-20 08:53] LABS: ATYPICAL LYMPH 2 % (0-5); BASOPHILS 1 % (0-1); EOSINOPHILS 3 % (0-3); LYMPHOCYTES 17 % (16-44); METAMYELOCYTES 3 % (0-0); MONOCYTES 5 % (0-5); MYELOCYTES 3 % (0-0); NEUTROPHILS 62 % (28-66)
[2021-09-20 08:55] LABS: PLATELET ESTIMATE NORMAL (NORMAL)
[2021-09-20] MEDS: ENOXAPARIN 40MG/0.4ML SYRINGE (J1650 PER 10MG) SC SCH (16:11)
[2021-09-20 20:03] VITALS: BP 161/70
[2021-09-20 20:11] VITALS: BP 148/82
[2021-09-20] MEDS: QUINAPRIL 20 MG TAB PO SCH (20:52)
[2021-09-21] MEDS: PERCOCET 5MG/325MG TAB PO PRN ×5 (01:17→21:50)
[2021-09-21 04:31] VITALS: BP 161/69
[2021-09-21] MEDS: SODIUM CHLORIDE 0.9% INJ 10 ML SYR IV SCH ×2 (04:40→17:24)
[2021-09-21] MEDS: ASCORBIC ACID 500 MG TAB PO SCH (09:00)
[2021-09-21] MEDS: VITAMIN D 1,000 INTERNATIONAL UNITS TABLET PO SCH (09:00)
[2021-09-21] MEDS: cefTRIAXone SOD 2 GM in D5W MINI-BAG PLUS 50 ML IV SCH (09:21)
[2021-09-21] MEDS: FUROSEMIDE 40 MG TAB PO SCH (09:23)
[2021-09-21] MEDS: POTASSIUM CHLORIDE 10MEQ SR TABLET PO SCH (09:24)
[2021-09-21] MEDS: SPIRONOLACTONE 25 MG TAB PO SCH (09:24)
[2021-09-21] MEDS: LACTOBACILLUS ACIDOPHILUS CAP (BACID) PO SCH (09:25)
[2021-09-21] MEDS: PANTOPRAZOLE 40MG TAB (PROTONIX) PO SCH (09:25)
[2021-09-21] MEDS: ASPIRIN 81MG ENTERIC TABLET PO SCH (09:25)
[2021-09-21] MEDS: ATORVASTATIN 10 MG TAB PO SCH (09:26)
[2021-09-21] MEDS: LEVEMIR (INSULIN DETEMIR) 1 UNITS/0.01ML SC SCH (09:26)
[2021-09-21] MEDS: INSULIN LISPRO (NovoLOG) PER UNIT SC SCH ×4 (09:27→21:17)
[2021-09-21] MEDS: ENOXAPARIN 40MG/0.4ML SYRINGE (J1650 PER 10MG) SC SCH (17:27)
[2021-09-21 20:06] VITALS: BP 162/73
[2021-09-21] MEDS: QUINAPRIL 20 MG TAB PO SCH (20:06)
[2021-09-22 04:00] VITALS: BP_SYST 142; BP_SYST 170; BP_DIAS 75; BP_DIAS 77
[2021-09-22] MEDS: SODIUM CHLORIDE 0.9% INJ 10 ML SYR IV SCH (04:53)
[2021-09-22] MEDS: PERCOCET 5MG/325MG TAB PO PRN ×2 (04:53→15:17)
[2021-09-22] MEDS ORDERED: POTA-136 PO (07:31)
[2021-09-22] MEDS ORDERED: ALCOPAD25 TOP (07:31)
[2021-09-22] MEDS ORDERED: PEN1MIS22 SC (07:31)
[2021-09-22] MEDS ORDERED: CEFT2INJ4 IV (07:31)
[2021-09-22] MEDS ORDERED: SENN18TA PO (07:31)
[2021-09-22] MEDS ORDERED: BLOOKIT21 XX (07:31)
[2021-09-22] MEDS ORDERED: INSUHUMDS SC (07:31)
[2021-09-22] MEDS ORDERED: INSU1MIS20 SC (07:31)
[2021-09-22] MEDS ORDERED: GLUC1TES2 XX (07:31)
[2021-09-22] MEDS ORDERED: PEN1MIS21 SC (07:31)
[2021-09-22] MEDS ORDERED: LANC30MI XX (07:31)
[2021-09-22] MEDS ORDERED: LEVE1INJ5 SC (07:31)
[2021-09-22 08:04] LABS: HEMOGLOBIN 10.8 g/dl (12.0-15.5); MEAN CORPUSCULAR HEMOGLOBIN 27.3 pg (27.0-33.0); MEAN CORPUSCULAR HGB CONC 30.9 g/dl (32.0-36.5); MEAN CORPUSCULAR VOLUME 88.4 fl (80.0-96.0); PLATELET COUNT, AUTOMATED 242 10^3/uL (150-450); RED BLOOD COUNT 3.96 10^6/uL (4.00-5.40); WHITE BLOOD COUNT 9.6 10^3/uL (4.0-10.0)
[2021-09-22] MEDS: ASPIRIN 81MG ENTERIC TABLET PO SCH (08:20)
[2021-09-22] MEDS: VITAMIN D 1,000 INTERNATIONAL UNITS TABLET PO SCH (08:20)
[2021-09-22] MEDS: POTASSIUM CHLORIDE 10MEQ SR TABLET PO SCH (08:20)
[2021-09-22] MEDS: SPIRONOLACTONE 25 MG TAB PO SCH (08:21)
[2021-09-22] MEDS: ASCORBIC ACID 500 MG TAB PO SCH (08:21)
[2021-09-22] MEDS: FUROSEMIDE 40 MG TAB PO SCH (08:21)
[2021-09-22] MEDS: ATORVASTATIN 10 MG TAB PO SCH (08:21)
[2021-09-22] MEDS: LACTOBACILLUS ACIDOPHILUS CAP (BACID) PO SCH (08:22)
[2021-09-22] MEDS: PANTOPRAZOLE 40MG TAB (PROTONIX) PO SCH (08:22)
[2021-09-22] MEDS: LEVEMIR (INSULIN DETEMIR) 1 UNITS/0.01ML SC SCH (08:22)
[2021-09-22] MEDS: INSULIN LISPRO (NovoLOG) PER UNIT SC SCH ×2 (08:23→13:38)
[2021-09-22] MEDS: cefTRIAXone SOD 2 GM in D5W MINI-BAG PLUS 50 ML IV SCH (08:24)
[2021-09-22 08:32] LABS: BLOOD UREA NITROGEN 10 MG/DL (7-18); C REACTIVE PROTEIN QUANTITATIV 5.46 MG/DL (0.00-0.30); CALCIUM LEVEL 8.5 MG/DL (8.8-10.2); CARBON DIOXIDE LEVEL 34 MEQ/L (21-32); CHLORIDE LEVEL 101 MEQ/L (98-107); GLOMERULAR FILTRATION RATE > 60.0 (>45); GLUCOSE, FASTING 304 MG/DL (70-100); POTASSIUM SERUM 3.6 MEQ/L (3.5-5.1); SODIUM LEVEL 139 MEQ/L (136-145)
[2021-09-22 08:47] LABS: EOSINOPHILS 7 % (0-3); LYMPHOCYTES 15 % (16-44); METAMYELOCYTES 1 % (0-0); MONOCYTES 6 % (0-5); NEUTROPHILS 69 % (28-66)
[2021-09-22 08:48] LABS: ANISOCYTOSIS 1+; PLATELET ESTIMATE NORMAL (NORMAL)
[2021-09-22 13:57] VITALS: BP 151/65
[2021-09-22] MEDS ORDERED: OXYC1TAB23 PO (17:18)
== END 2021-09-22 15:27 | disposition home health service (06) | DRG 466 ==
LOC: M ED 14:46 → EDBD 14:46 → M ED INP 18:55 → M 4MAIN 20:47
PROVIDERS: ADMIT Internal Medicine Nephrology; ATTEND Internal Medicine
PROC: 0SRW0JA Replacement of Left Knee Joint, Tibial Surface with Synthetic Substitute, Uncemented, Open Approach (ICD-10-PCS; 2021-09-15)
PROC: 0SPW0JZ Removal of Synthetic Substitute from Left Knee Joint, Tibial Surface, Open Approach (ICD-10-PCS; principal; 2021-09-15 13:59)
DX: T84.54XA Infection and inflammatory reaction due to internal left knee prosthesis, initial encounter (principal); U07.1 COVID-19; A40.9 Streptococcal sepsis, unspecified; Z68.41 Body mass index [BMI] 40.0-44.9, adult; M00.862 Arthritis due to other bacteria, left knee; Z68.42 Body mass index [BMI] 45.0-49.9, adult; E11.9 Type 2 diabetes mellitus without complications; Z96.653 Presence of artificial knee joint, bilateral; K21.9 Gastro-esophageal reflux disease without esophagitis; E66.01 Morbid (severe) obesity due to excess calories; E53.9 Vitamin B deficiency, unspecified; E78.5 Hyperlipidemia, unspecified; I87.2 Venous insufficiency (chronic) (peripheral); I10 Essential (primary) hypertension; J45.909 Unspecified asthma, uncomplicated; E55.9 Vitamin D deficiency, unspecified; G47.33 Obstructive sleep apnea (adult) (pediatric); Z96.651 Presence of right artificial knee joint; Z96.652 Presence of left artificial knee joint; Z79.899 Other long term (current) drug therapy; Z79.82 Long term (current) use of aspirin; Z79.4 Long term (current) use of insulin; M19.90 Unspecified osteoarthritis, unspecified site; Z87.891 Personal history of nicotine dependence; Y83.1 Surgical operation with implant of artificial internal device as the cause of abnormal reaction of the patient, or of later complication, without mention of misadventure at the time of the procedure

== ENCOUNTER → 2021-09-27 | Outpatient (REF) | payer MEDICARE ==
[~2021-09-27] MED LIST changes: +ACET-907 PO; +ALBU8.5H INH; +ALCOPAD25 TOP; +ATOR1TAB19 PO; +BACITAB PO; +BLOOKIT21 XX; +C 50TAB PO; +CEFT2INJ4 IV; +EQL50TAB2 PO; +ESOM40CA35 PO; +FURO40TA2 PO; +GLUC1TES2 XX; +INSU1MIS20 SC; +INSUHUMDS SC; +LANC30MI XX; +LEVE1INJ5 SC; +OXYC1TAB23 PO; +PEN1MIS21 SC; +PEN1MIS22 SC; +POTA-136 PO; +QUIN20TA48 PO; +REFR0.5D8 OU; +SENN18TA PO; +SPIR-10 PO; +VITA100093 PO; +VITA400C53 PO
[2021-09-27 14:49] LABS: HEMATOCRIT 33.2 % (36.0-47.0); HEMOGLOBIN 10.3 g/dl (12.0-15.5); MEAN CORPUSCULAR HEMOGLOBIN 27.4 pg (27.0-33.0); MEAN CORPUSCULAR VOLUME 88.3 fl (80.0-96.0); PLATELET COUNT, AUTOMATED 348 10^3/uL (150-450); RED BLOOD COUNT 3.76 10^6/uL (4.00-5.40); WHITE BLOOD COUNT 6.9 10^3/uL (4.0-10.0)
[2021-09-27 15:10] LABS: ALBUMIN 2.5 GM/DL (3.2-5.2); ALT/SGPT 31 U/L (12-78); BILIRUBIN,TOTAL 0.3 MG/DL (0.2-1.0); BLOOD UREA NITROGEN 7 MG/DL (7-18); C REACTIVE PROTEIN QUANTITATIV 5.32 MG/DL (0.00-0.30); CALCIUM LEVEL 8.9 MG/DL (8.8-10.2); CARBON DIOXIDE LEVEL 37 MEQ/L (21-32); CHLORIDE LEVEL 99 MEQ/L (98-107); CREATININE FOR GFR 0.54 MG/DL (0.55-1.30); GLOMERULAR FILTRATION RATE > 60.0 (>45); GLUCOSE, FASTING 269 MG/DL (70-100); POTASSIUM SERUM 3.8 MEQ/L (3.5-5.1); SODIUM LEVEL 140 MEQ/L (136-145); TOTAL PROTEIN 6.6 GM/DL (6.4-8.2)
[2021-09-27 15:11] LABS: ERYTHROCYTE SEDIMENTATION RATE 79 mm/hr (0-30)
== END ==
LOC: M SHH 13:47
PROVIDERS: ATTEND Internal Medicine Infectious Disease

== ENCOUNTER → 2021-10-04 | Outpatient (REF) | payer MEDICARE, OTHER ==
[2021-10-04 15:56] LABS: HEMATOCRIT 32.3 % (36.0-47.0); HEMOGLOBIN 9.9 g/dl (12.0-15.5); MEAN CORPUSCULAR HEMOGLOBIN 27.3 pg (27.0-33.0); MEAN CORPUSCULAR HGB CONC 30.7 g/dl (32.0-36.5); PLATELET COUNT, AUTOMATED 274 10^3/uL (150-450); RED BLOOD COUNT 3.63 10^6/uL (4.00-5.40); WHITE BLOOD COUNT 7.4 10^3/uL (4.0-10.0)
[2021-10-04 16:30] LABS: ALBUMIN 2.7 GM/DL (3.2-5.2); ALT/SGPT 41 U/L (12-78); BILIRUBIN,TOTAL 0.2 MG/DL (0.2-1.0); BLOOD UREA NITROGEN 10 MG/DL (7-18); C REACTIVE PROTEIN QUANTITATIV 1.18 MG/DL (0.00-0.30); CALCIUM LEVEL 8.5 MG/DL (8.8-10.2); CARBON DIOXIDE LEVEL 32 MEQ/L (21-32); CHLORIDE LEVEL 102 MEQ/L (98-107); CREATININE FOR GFR 0.59 MG/DL (0.55-1.30); GLOMERULAR FILTRATION RATE > 60.0 (>45); GLUCOSE, FASTING 155 MG/DL (70-100); POTASSIUM SERUM 4.2 MEQ/L (3.5-5.1); SODIUM LEVEL 141 MEQ/L (136-145); TOTAL PROTEIN 6.7 GM/DL (6.4-8.2)
[2021-10-04 16:34] LABS: ERYTHROCYTE SEDIMENTATION RATE 84 mm/hr (0-30)
== END ==
LOC: M SHH 14:36
PROVIDERS: ATTEND Internal Medicine Infectious Disease
DX: T84.54XA Infection and inflammatory reaction due to internal left knee prosthesis, initial encounter (principal); M00.862 Arthritis due to other bacteria, left knee; A40.1 Sepsis due to streptococcus, group B; E11.69 Type 2 diabetes mellitus with other specified complication

== ENCOUNTER → 2021-10-11 | Outpatient (REF) | payer MEDICARE, OTHER ==
[2021-10-11 17:16] LABS: ALBUMIN 3.1 GM/DL (3.2-5.2); ALT/SGPT 25 U/L (12-78); BILIRUBIN,TOTAL 0.3 MG/DL (0.2-1.0); BLOOD UREA NITROGEN 19 MG/DL (7-18); C REACTIVE PROTEIN QUANTITATIV 0.84 MG/DL (0.00-0.30); CALCIUM LEVEL 8.6 MG/DL (8.8-10.2); CARBON DIOXIDE LEVEL 31 MEQ/L (21-32); CHLORIDE LEVEL 100 MEQ/L (98-107); CREATININE FOR GFR 0.58 MG/DL (0.55-1.30); GLOMERULAR FILTRATION RATE > 60.0 (>45); GLUCOSE, FASTING 173 MG/DL (70-100); POTASSIUM SERUM 3.7 MEQ/L (3.5-5.1); SODIUM LEVEL 139 MEQ/L (136-145); TOTAL PROTEIN 7.1 GM/DL (6.4-8.2)
[2021-10-11 17:18] LABS: HEMATOCRIT 33.6 % (36.0-47.0); HEMOGLOBIN 10.6 g/dl (12.0-15.5); MEAN CORPUSCULAR HGB CONC 31.5 g/dl (32.0-36.5); MEAN CORPUSCULAR VOLUME 85.7 fl (80.0-96.0); PLATELET COUNT, AUTOMATED 256 10^3/uL (150-450); RED BLOOD COUNT 3.92 10^6/uL (4.00-5.40); WHITE BLOOD COUNT 7.3 10^3/uL (4.0-10.0)
[2021-10-11 20:17] LABS: ERYTHROCYTE SEDIMENTATION RATE 63 mm/hr (0-30)
== END ==
LOC: M SHH 16:19
PROVIDERS: ATTEND Internal Medicine Infectious Disease
DX: E11.69 Type 2 diabetes mellitus with other specified complication (principal); A40.1 Sepsis due to streptococcus, group B; T84.54XA Infection and inflammatory reaction due to internal left knee prosthesis, initial encounter; M00.862 Arthritis due to other bacteria, left knee

== ENCOUNTER → 2021-10-18 | Outpatient (REF) | payer MEDICARE, OTHER ==
[2021-10-18 16:26] LABS: HEMATOCRIT 34.1 % (36.0-47.0); HEMOGLOBIN 10.7 g/dl (12.0-15.5); MEAN CORPUSCULAR HEMOGLOBIN 26.7 pg (27.0-33.0); MEAN CORPUSCULAR HGB CONC 31.4 g/dl (32.0-36.5); PLATELET COUNT, AUTOMATED 212 10^3/uL (150-450); RED BLOOD COUNT 4.01 10^6/uL (4.00-5.40); WHITE BLOOD COUNT 7.8 10^3/uL (4.0-10.0)
[2021-10-18 16:51] LABS: ALBUMIN 3.2 GM/DL (3.2-5.2); ALT/SGPT 23 U/L (12-78); BILIRUBIN,TOTAL 0.3 MG/DL (0.2-1.0); BLOOD UREA NITROGEN 22 MG/DL (7-18); C REACTIVE PROTEIN QUANTITATIV 2.12 MG/DL (0.00-0.30); CALCIUM LEVEL 9.4 MG/DL (8.8-10.2); CARBON DIOXIDE LEVEL 30 MEQ/L (21-32); CHLORIDE LEVEL 99 MEQ/L (98-107); GLOMERULAR FILTRATION RATE > 60.0 (>45); GLUCOSE, FASTING 127 MG/DL (70-100); POTASSIUM SERUM 3.5 MEQ/L (3.5-5.1); SODIUM LEVEL 137 MEQ/L (136-145); TOTAL PROTEIN 7.1 GM/DL (6.4-8.2)
[2021-10-18 17:12] LABS: ERYTHROCYTE SEDIMENTATION RATE 66 mm/hr (0-30)
== END ==
LOC: M SHH 15:56
PROVIDERS: ATTEND Internal Medicine Infectious Disease
DX: T84.54XA Infection and inflammatory reaction due to internal left knee prosthesis, initial encounter (principal); M00.862 Arthritis due to other bacteria, left knee; A40.1 Sepsis due to streptococcus, group B; E11.69 Type 2 diabetes mellitus with other specified complication

== ENCOUNTER → 2021-11-01 | Outpatient (REF) | payer MEDICARE, OTHER ==
[2021-11-01 17:18] LABS: BASO % 0.5 % (0.0-1.0); EOS # 0.5 10^3/uL (0.0-0.5); HEMOGLOBIN 11.6 g/dl (12.0-15.5); LYMPH # 2.8 10^3/uL (1.5-5.0); MEAN CORPUSCULAR HEMOGLOBIN 26.6 pg (27.0-33.0); MEAN CORPUSCULAR HGB CONC 31.4 g/dl (32.0-36.5); MEAN CORPUSCULAR VOLUME 84.9 fl (80.0-96.0); MONO # 0.6 10^3/uL (0.0-0.8); MONO % 7.2 % (2.0-8.0); NEUTROPHILS % 50.4 % (36.0-66.0); PLATELET COUNT, AUTOMATED 259 10^3/uL (150-450); RED BLOOD COUNT 4.36 10^6/uL (4.00-5.40); WHITE BLOOD COUNT 7.9 10^3/uL (4.0-10.0)
[2021-11-01 19:03] LABS: ERYTHROCYTE SEDIMENTATION RATE 54 mm/hr (0-30)
== END ==
LOC: M SHH 16:25
PROVIDERS: ATTEND Internal Medicine Infectious Disease
DX: A49.1 Streptococcal infection, unspecified site (principal)

== ENCOUNTER → 2021-11-15 | Outpatient (CLI) | payer MEDICARE, OTHER ==
[2021-11-15 16:42] LABS: BASO # 0.1 10^3/uL (0.0-0.2); BASO % 0.7 % (0.0-1.0); EOS # 0.4 10^3/uL (0.0-0.5); EOS % 5.2 % (0.0-3.0); HEMATOCRIT 35.7 % (36.0-47.0); HEMOGLOBIN 11.3 g/dl (12.0-15.5); LYMPH # 2.6 10^3/uL (1.5-5.0); LYMPH % 33.9 % (24.0-44.0); MEAN CORPUSCULAR HEMOGLOBIN 26.3 pg (27.0-33.0); MEAN CORPUSCULAR HGB CONC 31.7 g/dl (32.0-36.5); MONO # 0.5 10^3/uL (0.0-0.8); PLATELET COUNT, AUTOMATED 228 10^3/uL (150-450); WHITE BLOOD COUNT 7.6 10^3/uL (4.0-10.0)
[2021-11-15 17:11] LABS: ERYTHROCYTE SEDIMENTATION RATE 63 mm/hr (0-30)
== END ==
LOC: M WUC 14:33
PROVIDERS: ATTEND Internal Medicine Infectious Disease
DX: A49.1 Streptococcal infection, unspecified site (principal)

== ENCOUNTER → 2021-11-30 | Outpatient (CLI) | payer MEDICARE, OTHER ==
[2021-11-30 12:37] LABS: BASO # 0.1 10^3/uL (0.0-0.2); BASO % 0.7 % (0.0-1.0); EOS # 0.5 10^3/uL (0.0-0.5); EOS % 6.5 % (0.0-3.0); HEMATOCRIT 37.2 % (36.0-47.0); HEMOGLOBIN 11.7 g/dl (12.0-15.5); LYMPH # 2.6 10^3/uL (1.5-5.0); MEAN CORPUSCULAR HEMOGLOBIN 26.6 pg (27.0-33.0); MEAN CORPUSCULAR HGB CONC 31.5 g/dl (32.0-36.5); MEAN CORPUSCULAR VOLUME 84.5 fl (80.0-96.0); MONO # 0.4 10^3/uL (0.0-0.8); NEUTROPHILS # 3.6 10^3/uL (1.5-8.5); NEUTROPHILS % 50.1 % (36.0-66.0); PLATELET COUNT, AUTOMATED 219 10^3/uL (150-450); WHITE BLOOD COUNT 7.1 10^3/uL (4.0-10.0)
[2021-11-30 13:04] LABS: ERYTHROCYTE SEDIMENTATION RATE 46 mm/hr (0-30)
== END ==
LOC: M WUC 10:15
PROVIDERS: ATTEND Internal Medicine Infectious Disease
DX: A49.1 Streptococcal infection, unspecified site (principal)

== ENCOUNTER → 2021-12-14 | Outpatient (CLI) | payer MEDICARE, OTHER ==
[2021-12-14 15:35] LABS: BASO # 0.1 10^3/uL (0.0-0.2); BASO % 0.8 % (0.0-1.0); EOS # 0.6 10^3/uL (0.0-0.5); EOS % 7.6 % (0.0-3.0); HEMATOCRIT 38.1 % (36.0-47.0); HEMOGLOBIN 12.3 g/dl (12.0-15.5); LYMPH # 2.8 10^3/uL (1.5-5.0); LYMPH % 35.3 % (24.0-44.0); MEAN CORPUSCULAR HEMOGLOBIN 26.6 pg (27.0-33.0); MEAN CORPUSCULAR HGB CONC 32.3 g/dl (32.0-36.5); MEAN CORPUSCULAR VOLUME 82.5 fl (80.0-96.0); MONO # 0.5 10^3/uL (0.0-0.8); MONO % 6.5 % (2.0-8.0); NEUTROPHILS # 3.9 10^3/uL (1.5-8.5); NEUTROPHILS % 49.2 % (36.0-66.0); PLATELET COUNT, AUTOMATED 243 10^3/uL (150-450); RED BLOOD COUNT 4.62 10^6/uL (4.00-5.40); WHITE BLOOD COUNT 7.9 10^3/uL (4.0-10.0)
[2021-12-14 16:10] LABS: C REACTIVE PROTEIN QUANTITATIV 0.72 MG/DL (0.00-0.30); PERCENT SATURATION 14.4 % (13.2-45.0); THYROID STIMULATING HORMONE 4.2 uIU/ML (0.358-3.740)
[2021-12-14 16:15] LABS: ERYTHROCYTE SEDIMENTATION RATE 37 mm/hr (0-30)
== END ==
LOC: M PLALAB 14:00
PROVIDERS: ATTEND Internal Medicine Infectious Disease
DX: A49.1 Streptococcal infection, unspecified site (principal); L65.9 Nonscarring hair loss, unspecified

== ENCOUNTER → 2022-01-10 | Outpatient (CLI) | payer MEDICARE, OTHER ==
[2022-01-10 10:31] LABS: BASO % 0.6 % (0.0-1.0); EOS # 0.4 10^3/uL (0.0-0.5); EOS % 6.5 % (0.0-3.0); HEMATOCRIT 37.2 % (36.0-47.0); HEMOGLOBIN 11.7 g/dl (12.0-15.5); LYMPH # 2.6 10^3/uL (1.5-5.0); LYMPH % 37.9 % (24.0-44.0); MEAN CORPUSCULAR HEMOGLOBIN 26.2 pg (27.0-33.0); MEAN CORPUSCULAR HGB CONC 31.5 g/dl (32.0-36.5); MEAN CORPUSCULAR VOLUME 83.2 fl (80.0-96.0); MONO # 0.4 10^3/uL (0.0-0.8); MONO % 5.8 % (2.0-8.0); NEUTROPHILS # 3.3 10^3/uL (1.5-8.5); NEUTROPHILS % 48.5 % (36.0-66.0); PLATELET COUNT, AUTOMATED 226 10^3/uL (150-450); RED BLOOD COUNT 4.47 10^6/uL (4.00-5.40); WHITE BLOOD COUNT 6.7 10^3/uL (4.0-10.0)
[2022-01-10 10:53] LABS: ERYTHROCYTE SEDIMENTATION RATE 30 mm/hr (0-30)
== END ==
LOC: M WUC 08:20
PROVIDERS: ATTEND Internal Medicine Infectious Disease
DX: A49.1 Streptococcal infection, unspecified site (principal)

== ENCOUNTER → 2022-05-03 | Outpatient (CLI) | payer MEDICARE, OTHER ==
[2022-05-03 14:08] LABS: BASO # 0.1 10^3/uL (0.0-0.2); BASO % 0.7 % (0.0-1.0); EOS # 0.5 10^3/uL (0.0-0.5); EOS % 6.9 % (0.0-3.0); HEMATOCRIT 42.9 % (36.0-47.0); HEMOGLOBIN 13.3 g/dl (12.0-15.5); LYMPH # 2.4 10^3/uL (1.5-5.0); LYMPH % 35.7 % (24.0-44.0); MEAN CORPUSCULAR HEMOGLOBIN 26.1 pg (27.0-33.0); MEAN CORPUSCULAR VOLUME 84.3 fl (80.0-96.0); MONO # 0.4 10^3/uL (0.0-0.8); MONO % 6.3 % (2.0-8.0); NEUTROPHILS # 3.4 10^3/uL (1.5-8.5); NEUTROPHILS % 49.5 % (36.0-66.0); PLATELET COUNT, AUTOMATED 195 10^3/uL (150-450); RED BLOOD COUNT 5.09 10^6/uL (4.00-5.40); WHITE BLOOD COUNT 6.8 10^3/uL (4.0-10.0)
[2022-05-03 14:19] LABS: ERYTHROCYTE SEDIMENTATION RATE 30 mm/hr (0-30)
[2022-05-03 14:43] LABS: ALBUMIN 4.1 G/DL (3.2-5.2); ALKALINE PHOSPHATASE 74 U/L (46-116); ALT/SGPT 27 U/L (7.0-40); AST/SGOT 22 U/L (<34); BILIRUBIN,TOTAL 0.5 MG/DL (0.3-1.2); BLOOD UREA NITROGEN 25 MG/DL (9-23); CALCIUM LEVEL 9.7 MG/DL (8.3-10.6); CARBON DIOXIDE LEVEL 32 MMOL/L (20-31); CHLORIDE LEVEL 102 MMOL/L (98-107); CREATININE FOR GFR 0.66 MG/DL (0.55-1.30); GLOMERULAR FILTRATION RATE > 60.0 (>45); GLUCOSE, FASTING 152 MG/DL (74-106); POTASSIUM SERUM 4.2 MMOL/L (3.5-5.1); SODIUM LEVEL 142 MMOL/L (136-145); TOTAL PROTEIN 7.3 G/DL (5.7-8.2)
[2022-05-03 14:48] LABS: HEMOGLOBIN A1c 7.8 % (4.0-6.0)
== END ==
LOC: M PLALAB 10:17
PROVIDERS: ATTEND Internal Medicine Infectious Disease
DX: T84.59XD Infection and inflammatory reaction due to other internal joint prosthesis, subsequent encounter (principal); E11.9 Type 2 diabetes mellitus without complications

== ENCOUNTER → 2022-07-22 | Outpatient (CLI) | payer MEDICARE, OTHER ==
[~2022-07-22] MED LIST changes: -ALBU2TA PO; +ALBU2TAB13 PO; +INSU100I6 SC; -LEVE1INJ5 SC
[2022-07-22 11:49] LABS: BASO # 0.1 10^3/uL (0.0-0.2); BASO % 0.8 % (0.0-1.0); EOS # 0.4 10^3/uL (0.0-0.5); HEMATOCRIT 39.1 % (36.0-47.0); HEMOGLOBIN 12.4 g/dl (12.0-15.5); LYMPH # 2.8 10^3/uL (1.5-5.0); MEAN CORPUSCULAR HEMOGLOBIN 26.9 pg (27.0-33.0); MEAN CORPUSCULAR HGB CONC 31.7 g/dl (32.0-36.5); MEAN CORPUSCULAR VOLUME 84.8 fl (80.0-96.0); MONO # 0.5 10^3/uL (0.0-0.8); MONO % 6.7 % (2.0-8.0); NEUTROPHILS # 3.7 10^3/uL (1.5-8.5); NEUTROPHILS % 47.9 % (36.0-66.0); PLATELET COUNT, AUTOMATED 178 10^3/uL (150-450); RED BLOOD COUNT 4.61 10^6/uL (4.00-5.40); WHITE BLOOD COUNT 7.6 10^3/uL (4.0-10.0)
[2022-07-22 12:09] LABS: ERYTHROCYTE SEDIMENTATION RATE 22 mm/hr (0-30)
== END ==
LOC: M WUC 08:36
PROVIDERS: ATTEND Orthopaedic Surgery Adult Reconstructive Orthopaedic Surgery
DX: M25.569 Pain in unspecified knee (principal)

== ENCOUNTER → 2024-01-30 | Outpatient (CLI) | payer MEDICARE, OTHER ==
[~2024-01-30] MED LIST changes: +ESOM1CAP20; -ESOM1CAP5; -GLIM1TAB4; +GLIM1TAB84; +PEN-308 SC; -PEN1MIS21 SC; +SENN-165 PO; -SENN18TA PO
[2024-01-30 13:25] LABS: ALBUMIN 4.1 G/DL (3.2-5.2); BASO # 0.1 10^3/uL (0.0-0.2); BASO % 0.6 % (0.0-1.0); BILIRUBIN,TOTAL 0.4 MG/DL (0.3-1.2); CALCIUM LEVEL 9.8 MG/DL (8.3-10.6); CHOLESTEROL RISK RATIO 4.65 (<5); CREATININE FOR GFR 1.44 MG/DL (0.55-1.30); EOS # 0.6 10^3/uL (0.0-0.5); EOS % 7.5 % (0.0-3.0); GLOMERULAR FILTRATION RATE 38.2 (>39); HDL CHOLESTEROL 37.6 MG/DL (>40); HEMATOCRIT 36.5 % (36.0-47.0); HEMOGLOBIN 11.7 g/dl (12.0-15.5); LYMPH # 2.5 10^3/uL (1.5-5.0); LYMPH % 31.1 % (24.0-44.0); MEAN CORPUSCULAR HEMOGLOBIN 28.8 pg (27.0-33.0); MEAN CORPUSCULAR HGB CONC 32.1 g/dl (32.0-36.5); MEAN CORPUSCULAR VOLUME 89.9 fl (80.0-96.0); MONO # 0.5 10^3/uL (0.0-0.8); MONO % 6.1 % (2.0-8.0); NEUTROPHILS # 4.4 10^3/uL (1.5-8.5); NEUTROPHILS % 53.8 % (36.0-66.0); NON-HDL-C 137.4 MG/DL; PLATELET COUNT, AUTOMATED 212 10^3/uL (150-450); POTASSIUM SERUM 4.9 MMOL/L (3.5-5.1); RED BLOOD COUNT 4.06 10^6/uL (4.00-5.40); TOTAL PROTEIN 7.3 G/DL (5.7-8.2); WHITE BLOOD COUNT 8.1 10^3/uL (4.0-10.0)
[2024-01-30 13:48] LABS: MALB URINE SIEMENS < 3.0 MG/L
[2024-01-30 14:10] LABS: CREATININE, URINE 51.3 MG/DL; MAU/CREAT RATIO 5.8 MCG/MG (0.0-30.0)
[2024-01-30 14:13] LABS: HEMOGLOBIN A1c 6.2 % (4.0-6.0)
== END ==
LOC: M WUC 09:51
PROVIDERS: ATTEND Family Medicine
DX: E11.9 Type 2 diabetes mellitus without complications (principal)

== ENCOUNTER → 2025-01-30 | Outpatient (CLI) | payer MEDICARE, OTHER ==
[~2025-01-30] MED LIST changes: -EQL50TAB2 PO; +VITA1TAB82 PO
[2025-01-30 12:52] LABS: BASO # 0.0 10^3/uL (0.0-0.2); BASO % 0.4 % (0.0-1.0); EOS # 0.5 10^3/uL (0.0-0.5); EOS % 5.2 % (0.0-3.0); LYMPH # 3.3 10^3/uL (1.5-5.0); LYMPH % 32.2 % (24.0-44.0); MONO # 0.8 10^3/uL (0.0-0.8); MONO % 7.5 % (2.0-8.0); NEUTROPHILS # 5.5 10^3/uL (1.5-8.5); NEUTROPHILS % 54.4 % (36.0-66.0); PLATELET COUNT, AUTOMATED 254 10^3/uL (150-450)
[2025-01-30 13:15] LABS: MALB URINE SIEMENS 9.0 MG/L
[2025-01-30 13:16] LABS: ALT/SGPT 19.0 U/L (7.0-40); AST/SGOT 22.0 U/L (<34); CALCIUM LEVEL 9.2 MG/DL (8.3-10.6); CARBON DIOXIDE LEVEL 28.0 MMOL/L (20-31); CHLORIDE LEVEL 103.0 MMOL/L (98-107); CHOLESTEROL LEVEL 152.0 MG/DL (<200); CHOLESTEROL RISK RATIO 3.98 (<5); CREATININE FOR GFR 1.91 MG/DL (0.55-1.30); GLOMERULAR FILTRATION RATE 27.5 (>39); LDL CHOLESTEROL 73.3 MG/DL (<100); NON-HDL-C 113.9 MG/DL; POTASSIUM SERUM 4.9 MMOL/L (3.5-5.1); SODIUM LEVEL 142.0 MMOL/L (136-145); TRIGLYCERIDES LEVEL 203.0 MG/DL (<150)
[2025-01-30 13:26] LABS: CREATININE, URINE 249.9 MG/DL; MAU/CREAT RATIO 3.6 MCG/MG (0.0-30.0)
[2025-01-30 13:41] LABS: ESTIMATED AVERAGE GLUCOSE 108.0 MG/DL (60-110)
== END ==
LOC: M WUC 08:35
PROVIDERS: ATTEND Family Medicine
DX: E11.69 Type 2 diabetes mellitus with other specified complication (principal)

== ENCOUNTER → 2025-03-10 | Outpatient (CLI) | payer MEDICARE, OTHER ==
[2025-03-10 14:45] LABS: CALCIUM LEVEL 8.9 MG/DL (8.3-10.6); CARBON DIOXIDE LEVEL 26.0 MMOL/L (20-31); CHLORIDE LEVEL 104.0 MMOL/L (98-107); CREATININE FOR GFR 1.28 MG/DL (0.55-1.30); GLOMERULAR FILTRATION RATE 44.5 (>39); POTASSIUM SERUM 4.6 MMOL/L (3.5-5.1); SODIUM LEVEL 140.0 MMOL/L (136-145)
== END ==
LOC: M WUC 10:08
PROVIDERS: ATTEND Family Medicine
DX: E11.69 Type 2 diabetes mellitus with other specified complication (principal)